=== PATIENT | female | born 1950 | race African-American/Black ===

== ENCOUNTER 2018-03-24 12:17 | Emergency (ER) | payer OTHER ==
[~2018-03-24] VITALS: Ht 162.6 cm; Wt 59.0 kg
[2018-03-24 12:18] VITALS: BP 118/72
[2018-03-24] MEDS ORDERED: ULTRAM 50MG TAB50 MG PO (12:42)
[2018-03-24] MEDS ORDERED: ACYCLOVIR 400400 MG PO (12:42)
== END 2018-03-24 13:11 | disposition home or self-care (01) ==
LOC: ER 12:17
DX: B02.9 Zoster without complications (principal); I10 Essential (primary) hypertension; J44.9 Chronic obstructive pulmonary disease, unspecified; Z88.0 Allergy status to penicillin; Z88.8 Allergy status to other drugs, medicaments and biological substances; Z88.3 Allergy status to other anti-infective agents